=== PATIENT | male | born 1980 | race Caucasian/White ===

== ENCOUNTER 2016-08-25 17:54 | Emergency (ER) | payer OTHER ==
--- NOTE | 2016-08-25 19:42 | DIAGNOSTIC IMAGING REPORT ---
PROCEDURE: US SCROTUM/TESTICLE INDICATION: SCROTAL PAIN, initial encounter TECHNIQUE: House scale and color Doppler sonographic images through the scrotum were obtained. COMPARISON: None. FINDINGS: RIGHT TESTICLE: Measures 5.5 x 3.1 x 2.5 cm with normal echo structure and vascularity. 5 mm epididymal cyst. Small hydrocele. LEFT TESTICLE: Measures 5.2 x 2.3 x 3.1 cm with normal echo structure and vascularity. Normal epididymis. Small hydrocele. IMPRESSION: 1. Small bilateral hydroceles 2. Normal testicles
--- NOTE | 2016-08-25 20:18 | ED CLINICAL REPORT ---
Clinical Report - Physicians/Mid Levels [facility] [address] [place] [place] [address] 08/25/2016 17:53 Patient: MIKE REDDY Time Seen: 19:49 Aug 25 2016. Arrived- By private vehicle. Historian- patient. HISTORY OF PRESENT ILLNESS Chief Complaint: HEMATURIA. 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 The problem is described as mild. No penile discharge or discomfort with urination. (patient reports him any area off and on with clots, some hematuria with ejaculation, 2 days previously. Denies any fevers or chills. Denies any urgency or frequency. Denies dysuria. Reports history of similar, with nephrolithiasis.). REVIEW OF SYSTEMS No fever, chills, hematuria, abdominal pain or chest pain. No difficulty breathing. All systems otherwise negative, except as recorded above. SOCIAL HISTORY Never smoker. Alcohol use. History of drug use. ADDITIONAL NOTES The nursing notes have been reviewed. PHYSICAL EXAM Vital Signs: 08/25/2016 18:55 BP: 155/90. HR: 62. RR: 18. O2 saturation: 99%. Temp: 98.7 F. Appearance: Alert. ENT: Normal external inspection. Pharynx normal. Neck: Neck supple. CVS: Heart sounds normal. Respiratory: No respiratory distress. Breath sounds normal. Abdomen: Soft and nontender. Bowel sounds normal. No mass. Back: No CVA tenderness. : Normal genitalia. Testes descended. No tenderness present or scrotal mass. Skin: Skin warm. Normal skin color. LABS, X-RAYS, AND EKG Scrotal Sonogram: IMPRESSION: 1. Small bilateral hydroceles 2. Normal testicles Electronically Final signed by:Chris Saxena MD 08/25/2016 7:42:02 PM. Laboratory Tests: UA-Culture if indicated: (ALEJANDRINA: 08/25/2016 19:25) ( MsgRcvd 08/25/2016 20:00) Final results Test Result Flag Units (Reference) URINE COLOR YELLOW URINE APPEARANCE CLEAR URINE GLUCOSE NEGATIVE (NEGATIVE) URINE BILIRUBIN NEGATIVE (NEGATIVE) URINE KETONE NEGATIVE (NEGATIVE) URINE SPECIFIC GRAVITY 1.020 (1.010-1.030) URINE PH 7.0 (5.0-8.0) URINE PROTEIN NEGATIVE (NEGATIVE) URINE UROBILINOGEN 0.2 EU/dL (0.2-1.0) URINE NITRITE NEGATIVE (NEGATIVE) URINE BLOOD NEGATIVE (NEGATIVE) URINE LEUK ESTERASE NEGATIVE (NEGATIVE) URINE RBC 0-1 rbc/hpf (0-1) URINE WBC 0-1 wbc/hpf (0-1) URINE EPITHELIAL CELLS RARE EPI/hpf (0-5) URINE BACTERIA NONE SEEN (NONE SEEN) URINE COMMENT CULT NOT INDICATED 1+ AMORPHOUSURINE CULTURES ARE SET-UP BASED ON THE FOLLOWING CRITERIA:POSITIVE NITRITEPOSITIVE LEUKOCYTE ESTERASEGREATER THAN 10 WHITE BLOOD CELLSMODERATE (2+) OR GREATER BACTERIA . PROGRESS AND PROCEDURES Course of Care: Negative exam, with bilingual speech language pathologistRenato RN. Patient in the ER is very stable. No CVA tenderness. No signs of cystitis, nephrolithiasis, hematuria. he has no pain. neg us of testicle, and to f/u outpatient. Physical exam findings are improved. Symptoms better. Patient/family counseled. Disposition: Discharged. CLINICAL IMPRESSION Hematuria INSTRUCTIONS Drink plenty of fluids. (no signs of blood in urine your ultrasound looks great please follow up with urology for your "hematuria" occasional blood clots in urine). Warnings: Further evaluation is necessary. Follow-up: Follow up with a specialist Urology: toño [phone]. (Electronically signed by Zari Chu P.A.-C 08/25/2016 22:22)
--- NOTE | 2016-08-25 20:18 | ED CLINICAL REPORT ---
Clinical Report - Physicians/Mid Levels [facility] [address] [place] [address] 08/25/2016 17:53 Patient: MIKE REDDY Time Seen: 19:49 Aug 25 2016. Arrived- By private vehicle. Historian- patient. HISTORY OF PRESENT ILLNESS Chief Complaint: HEMATURIA. 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 The problem is described as mild. No penile discharge or discomfort with urination. (patient reports him any area off and on with clots, some hematuria with ejaculation, 2 days previously. Denies any fevers or chills. Denies any urgency or frequency. Denies dysuria. Reports history of similar, with nephrolithiasis.). REVIEW OF SYSTEMS No fever, chills, hematuria, abdominal pain or chest pain. No difficulty breathing. All systems otherwise negative, except as recorded above. SOCIAL HISTORY Never smoker. Alcohol use. History of drug use. ADDITIONAL NOTES The nursing notes have been reviewed. PHYSICAL EXAM Vital Signs: 08/25/2016 18:55 BP: 155/90. HR: 62. RR: 18. O2 saturation: 99%. Temp: 98.7 F. Appearance: Alert. ENT: Normal external inspection. Pharynx normal. Neck: Neck supple. CVS: Heart sounds normal. Respiratory: No respiratory distress. Breath sounds normal. Abdomen: Soft and nontender. Bowel sounds normal. No mass. Back: No CVA tenderness. : Normal genitalia. Testes descended. No tenderness present or scrotal mass. Skin: Skin warm. Normal skin color. LABS, X-RAYS, AND EKG Scrotal Sonogram: IMPRESSION: 1. Small bilateral hydroceles 2. Normal testicles Electronically Final signed by:Chris Saxena MD 08/25/2016 7:42:02 PM. Laboratory Tests: UA-Culture if indicated: (ALEJANDRINA: 08/25/2016 19:25) ( MsgRcvd 08/25/2016 20:00) Final results Test Result Flag Units (Reference) URINE COLOR YELLOW URINE APPEARANCE CLEAR URINE GLUCOSE NEGATIVE (NEGATIVE) URINE BILIRUBIN NEGATIVE (NEGATIVE) URINE KETONE NEGATIVE (NEGATIVE) URINE SPECIFIC GRAVITY 1.020 (1.010-1.030) URINE PH 7.0 (5.0-8.0) URINE PROTEIN NEGATIVE (NEGATIVE) URINE UROBILINOGEN 0.2 EU/dL (0.2-1.0) URINE NITRITE NEGATIVE (NEGATIVE) URINE BLOOD NEGATIVE (NEGATIVE) URINE LEUK ESTERASE NEGATIVE (NEGATIVE) URINE RBC 0-1 rbc/hpf (0-1) URINE WBC 0-1 wbc/hpf (0-1) URINE EPITHELIAL CELLS RARE EPI/hpf (0-5) URINE BACTERIA NONE SEEN (NONE SEEN) URINE COMMENT CULT NOT INDICATED 1+ AMORPHOUSURINE CULTURES ARE SET-UP BASED ON THE FOLLOWING CRITERIA:POSITIVE NITRITEPOSITIVE LEUKOCYTE ESTERASEGREATER THAN 10 WHITE BLOOD CELLSMODERATE (2+) OR GREATER BACTERIA . PROGRESS AND PROCEDURES Course of Care: Negative exam, with produce department managerRenato RN. Patient in the ER is very stable. No CVA tenderness. No signs of cystitis, nephrolithiasis, hematuria. he has no pain. neg us of testicle, and to f/u outpatient. Physical exam findings are improved. Symptoms better. Patient/family counseled. Disposition: Discharged. CLINICAL IMPRESSION Hematuria INSTRUCTIONS Drink plenty of fluids. (no signs of blood in urine your ultrasound looks great please follow up with urology for your "hematuria" occasional blood clots in urine). Warnings: Further evaluation is necessary. Follow-up: Follow up with a specialist Urology: toño [phone]. (Electronically signed by Zari Chu P.A.-C 08/25/2016 22:22)
--- NOTE | 2016-08-25 20:18 | ED ORDER SUMMARY ---
..... Patient: MIKE REDDY OrderSheet [facility] VisitID: [id number] [place] [address] 35y, M Registration Date/Time: 08/25/2016 ORDER SHEET Weight: 79.3 kg (stated) Allergies: None GENERAL ORDERS: US Scrotum/Testicular Urgent (19:05 08/25/2016 EKoroleva P.A.-C) (Ack 19:06 TBergley) (19:19 TLewis R.N.) GC/Chlamydia, Urine (Urine, Clean Catch) (u) Urgent (19:18 08/25/2016 EKoroleva P.A.-C) (Ack 19:20 TBergley) (19:28 TLewis R.N.) UA-Culture if indicated Urgent (19:18 08/25/2016 EKoroleva P.A.-C) (Ack 19:20 TBergley) (19:28 TLewis R.N.) MEDICATION ORDERS: IV FLUIDS: ORDER SHEET NOTES: [Electronically signed by Zari ChuAStiven-Kathryn (22:22 08/25/2016)] [Electronically signed by Tamika Meier R.N. (09:32 09/13/2016)] [Electronically locked/signed by Tamika Meier R.N. (09:32 09/13/2016)]
--- NOTE | 2016-08-25 20:18 | ED ORDER SUMMARY ---
..... Patient: MIKE REDDY OrderSheet [facility] VisitID: [id number] [place] [address] 35y, M Registration Date/Time: 08/25/2016 ORDER SHEET Weight: 79.3 kg (stated) Allergies: None GENERAL ORDERS: US Scrotum/Testicular Urgent (19:05 08/25/2016 EKoroleva P.A.-C) (Ack 19:06 TBergley) (19:19 TLewis R.N.) GC/Chlamydia, Urine (Urine, Clean Catch) (u) Urgent (19:18 08/25/2016 EKoroleva P.A.-C) (Ack 19:20 TBergley) (19:28 TLewis R.N.) UA-Culture if indicated Urgent (19:18 08/25/2016 EKoroleva P.A.-C) (Ack 19:20 TBergley) (19:28 TLewis R.N.) MEDICATION ORDERS: IV FLUIDS: ORDER SHEET NOTES: [Electronically signed by Zari ChuAStiven-Kathryn (22:22 08/25/2016)] [Electronically signed by Tamika Meier R.N. (09:32 09/13/2016)] [Electronically locked/signed by Tamika Meier R.N. (09:32 09/13/2016)]
--- NOTE | 2016-08-25 20:18 | ED NURSING NOTES ---
Clinical Report - Nurses [facility] [address] [place] [address] 08/25/2016 17:53 Patient: MIKE REDDY TRIAGE Triage time 18:55. Acuity: LEVEL 3. --19:02 Renato Gomez R.N. 18:55 08/25/16. BP: 155/90. HR: 62. RR: 18. O2 saturation: 99%. Temp: 98.7 F. Pain level now 12/21. --19:02 Renato Gomez R.N. Chief Complaint: PAINFUL URINATION. --09:32 Tamika Meier R.N. Weight: 79.3 kg stated. Height/Length: 73 inches Per Patient. BMI: 23.1. --19:00 Renato Gomez R.N. Medications SEROquel Oral. --19:01 Renato Gomez R.N. LaMICtal Oral 200mg , qd in am. --19: Renato Gomez R.N. Medication/allergy information source: the patient. --19:02 Renato Gomez R.N. Allergies None. --19:00 Renato Gomez R.N. History Arrived by private vehicle. Historian: patient. ( Pt came in due to having pain on urination that is burning. Pt had small amount of blood, when he ejaculated. Pt is having pain in the left testicle, and pt stated there is some swelling. Pt has been seen for kidney stones in the past, 3 times this year.). 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 SOCIAL HX: Heavy alcohol use; consumes three beers a day. History of occasional drug use: marijuana. --19:02 Renato Gomez R.N. ( urinary pain). --09:32 Tamika Meier R.N. PROBLEMS: Sprain. Bipolar Disorder. Pharyngitis. Immunizations. [place] teeth extracted. Neck I&D for MRSA after wisdom tooth extraction. Pn. Laceration. Animal Bite. ADHD - Attention Deficit Hyperactivity Disorder. Tetanus Status. --19:02 Renato Gomez R.N. Interventions ID band on patient. To treatment room. --19:02 Renato Gomez R.N. PHYSICAL ASSESSMENT GENERAL / NEURO / PSYCH: Alert. Oriented X 4. Appears anxious. (Pt is upset that his is not here). HEENT: Mucous membranes are pink. RESPIRATORY: Respirations not labored. Breath sounds within normal limits. CVS: Normal sinus rhythm noted. Capillary refill less than 2 seconds. GI / : Abdomen soft and nontender. Bowel sounds within normal limits. ( Pt denies any discharge in the penis. Pt stated he is passing blood clots in his urine and when he ejaculates. Pt has pain when he voids.). SKIN: Skin is warm and dry. --19:04 Renato Gomez R.N. NURSING PROGRESS NOTES Patient gowned. Two patient identifiers checked. Call light placed in reach. Side rails up x 1. Bed placed in lowest position. --19:04 Renato Gomez R.N. ( Ultrasound is present in the room.). --19:18 Renato Gomez R.N. DISPOSITION / DISCHARGE Departure time: 2032. No learning barriers present. Discharge instructions provided and reviewed with the patient. The patient was discharged by the physician preschool assistant teacher. He was discharged home. ( Pt ambulated on discharge steady on his feet pt verbalized understanding of discharge instructions and follow up care.). --20:39 Wilbur Mast R.N. 20:35 08/25/16. BP: 151/96. HR: 83. RR: 18. O2 saturation: 100%. Temp: 97.8 F. Pain level now 0/10. --20:39 Wilbur Mast R.N. Locked/Released at 09/13/2016 9:32 by Tamika Meier R.N.
--- NOTE | 2016-08-25 20:18 | ED NURSING NOTES ---
Clinical Report - Nurses Merged [facility] [address] [place] [address] 08/25/2016 17:53 Patient: MIKE REDDY TRIAGE Triage time 18:55. Acuity: LEVEL 3. --19:02 Renato Gomez R.N. 18:55 08/25/16. BP: 155/90. HR: 62. RR: 18. O2 saturation: 99%. Temp: 98.7 F. Pain level now 12/21. --19:02 Renato Gomez R.N. Chief Complaint: PAINFUL URINATION. --09:32 Tamika Meier R.N. Weight: 79.3 kg stated. Height/Length: 73 inches Per Patient. BMI: 23.1. --19:00 Renato Gomez R.N. Medications SEROquel Oral. --19:01 Renato Gomez R.N. LaMICtal Oral 200mg , qd in am. --19: Renato Gomez R.N. Medication/allergy information source: the patient. --19:02 Renato Gomez R.N. Allergies None. --19:00 Renato Gomez R.N. History Arrived by private vehicle. Historian: patient. ( Pt came in due to having pain on urination that is burning. Pt had small amount of blood, when he ejaculated. Pt is having pain in the left testicle, and pt stated there is some swelling. Pt has been seen for kidney stones in the past, 3 times this year.). 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 SOCIAL HX: Heavy alcohol use; consumes three beers a day. History of occasional drug use: marijuana. --19:02 Renato Gomez R.N. ( urinary pain). --09:32 Tamika Meier R.N. PROBLEMS: Sprain. Bipolar Disorder. Pharyngitis. Immunizations. [place] teeth extracted. Neck I&D for MRSA after wisdom tooth extraction. Pn. Laceration. Animal Bite. ADHD - Attention Deficit Hyperactivity Disorder. Tetanus Status. --19:02 Renato Gomez R.N. Interventions ID band on patient. To treatment room. --19:02 Renato Gomez R.N. PHYSICAL ASSESSMENT GENERAL / NEURO / PSYCH: Alert. Oriented X 4. Appears anxious. (Pt is upset that his is not here). HEENT: Mucous membranes are pink. RESPIRATORY: Respirations not labored. Breath sounds within normal limits. CVS: Normal sinus rhythm noted. Capillary refill less than 2 seconds. GI / : Abdomen soft and nontender. Bowel sounds within normal limits. ( Pt denies any discharge in the penis. Pt stated he is passing blood clots in his urine and when he ejaculates. Pt has pain when he voids.). SKIN: Skin is warm and dry. --19:04 Renato Gomez R.N. NURSING PROGRESS NOTES Patient gowned. Two patient identifiers checked. Call light placed in reach. Side rails up x 1. Bed placed in lowest position. --19:04 Renato Gomez R.N. ( Ultrasound is present in the room.). --19:18 Renato Gomez R.N. DISPOSITION / DISCHARGE Departure time: 2032. No learning barriers present. Discharge instructions provided and reviewed with the patient. The patient was discharged by the physician phlebotomist medical lab assistant. He was discharged home. ( Pt ambulated on discharge steady on his feet pt verbalized understanding of discharge instructions and follow up care.). --20:39 Wilbur Mast R.N. 20:35 08/25/16. BP: 151/96. HR: 83. RR: 18. O2 saturation: 100%. Temp: 97.8 F. Pain level now 0/10. --20:39 Wilbur Mast R.N. Locked/Released at 09/13/2016 9:32 by Tamika Meier R.N.
--- NOTE | 2016-09-13 09:33 | ED MED RECONCILIATION SUMMARY ---
Patient: MIKE REDDY Medication Reconciliation Report [facility] VisitID: [id number] [address] [place] [address] 35y, M Registration Date/Time: 08/25/2016 Weight: 79.3 kg Height/Length: 73 in. BMI: 23.1 ALLERGIES: None The patient's Home Medications are listed below: THE FOLLOWING MEDICATIONS NEED TO BE RECONCILED: LaMICtal Oral 200mg , qd in am SEROquel Oral The source(s) of the original Home Medication information: patient The following Medications were given to the patient in the Emergency Department: None. The following Medications were prescribed to the patient: None.
--- NOTE | 2016-09-13 09:33 | ED MAR SUMMARY ---
..... Medication Administration Record [facility] [address] [place], [place] [id number] Patient: MIKE REDDY Visit ID: [id number] 35y, M Weight: 79.3 kg Height/Length: 73 in BMI: 23.1 ALLERGIES: None
--- NOTE | 2016-09-13 09:33 | ED DISCHARGE INSTRUCTIONS ---
Patient: MIKE REDDY General Instructions [facility] VisitID: [id number] [place] [address] 35y, M Registration Date/Time: 08/25/2016 Hematuria INSTRUCTIONS Drink plenty of fluids. (no signs of blood in urine your ultrasound looks great please follow up with urology for your "hematuria" occasional blood clots in urine). Warnings: Further evaluation is necessary. Follow-up: Follow up with a specialist Urology: toño [phone]. ADDITIONAL INFORMATION Blood In The Urine Blood in the urine ("hematuria") has many possible causes. If it occurs after an injury (such as a car accident or fall), it is most often a sign of bruising to the kidney or bladder. Common medical causes of blood in the urine include urinary tract infection, kidney stone, inflammation, tumors, or certain other diseases of the kidney or bladder. Menstruation can cause blood to appear in the urine sample, although it is not coming from the urinary tract. If only a trace amount of blood is present, it will show up on the urine test, even though the urine may be yellow and not pink or red. This may occur with any of the above conditions, as well as heavy exercise or high fever. In this case, your doctor may want to repeat the urine test on another day. This will show if the blood is still present. If so, then other tests can be done to find out the cause. Home Care: If your urine does not appear bloody (pink, brown or red) then you do not need to restrict your activity in any way. If you can see blood in your urine, rest and avoid heavy exertion until your next exam. Do not use aspirin or anti-inflammatory medicine like ibuprofen (Motrin, Advil) or naproxen (Naprosyn, Aleve). These thin the blood and may increase bleeding. Follow Up with your doctor or as advised by our staff. If you were injured and had blood in your urine, you should have a repeat urine test in 1-2 days. Contact your doctor or return to this facility for this test. [NOTE: A radiologist will review any X-rays that were taken. We will notify you of any new findings that may affect your care.] Get Prompt Medical Attention if any of the following occur: Bright red blood or blood clots in the urine (if a new symptom) Weakness, dizziness or fainting New groin, abdominal or back pain Fever of 100.4F (38C) or higher, or as directed by your healthcare provider Repeated vomiting Bleeding from nose, gums or easy bruising You have been given the following additional information: Hematuria (Electronically signed by Zari Chu P.A.-C 08/25/2016 22:22)
--- NOTE | 2016-09-13 09:33 | ED MED RECONCILIATION SUMMARY ---
Patient: MIKE REDDY Medication Reconciliation Report [facility] VisitID: [id number] [address] [place] [address] 35y, M Registration Date/Time: 08/25/2016 Weight: 79.3 kg Height/Length: 73 in. BMI: 23.1 ALLERGIES: None The patient's Home Medications are listed below: THE FOLLOWING MEDICATIONS NEED TO BE RECONCILED: LaMICtal Oral 200mg , qd in am SEROquel Oral The source(s) of the original Home Medication information: patient The following Medications were given to the patient in the Emergency Department: None. The following Medications were prescribed to the patient: None.
--- NOTE | 2016-09-13 09:33 | ED MAR SUMMARY ---
..... Medication Administration Record [facility] [address] [place], [place] [id number] Patient: MIKE REDDY Visit ID: [id number] 35y, M Weight: 79.3 kg Height/Length: 73 in BMI: 23.1 ALLERGIES: None
--- NOTE | 2016-09-13 09:33 | ED DISCHARGE INSTRUCTIONS ---
Patient: MIKE REDDY General Instructions [facility] VisitID: [id number] [place] [address] 35y, M Registration Date/Time: 08/25/2016 Hematuria INSTRUCTIONS Drink plenty of fluids. (no signs of blood in urine your ultrasound looks great please follow up with urology for your "hematuria" occasional blood clots in urine). Warnings: Further evaluation is necessary. Follow-up: Follow up with a specialist Urology: toño [phone]. ADDITIONAL INFORMATION Blood In The Urine Blood in the urine ("hematuria") has many possible causes. If it occurs after an injury (such as a car accident or fall), it is most often a sign of bruising to the kidney or bladder. Common medical causes of blood in the urine include urinary tract infection, kidney stone, inflammation, tumors, or certain other diseases of the kidney or bladder. Menstruation can cause blood to appear in the urine sample, although it is not coming from the urinary tract. If only a trace amount of blood is present, it will show up on the urine test, even though the urine may be yellow and not pink or red. This may occur with any of the above conditions, as well as heavy exercise or high fever. In this case, your doctor may want to repeat the urine test on another day. This will show if the blood is still present. If so, then other tests can be done to find out the cause. Home Care: If your urine does not appear bloody (pink, brown or red) then you do not need to restrict your activity in any way. If you can see blood in your urine, rest and avoid heavy exertion until your next exam. Do not use aspirin or anti-inflammatory medicine like ibuprofen (Motrin, Advil) or naproxen (Naprosyn, Aleve). These thin the blood and may increase bleeding. Follow Up with your doctor or as advised by our staff. If you were injured and had blood in your urine, you should have a repeat urine test in 1-2 days. Contact your doctor or return to this facility for this test. [NOTE: A radiologist will review any X-rays that were taken. We will notify you of any new findings that may affect your care.] Get Prompt Medical Attention if any of the following occur: Bright red blood or blood clots in the urine (if a new symptom) Weakness, dizziness or fainting New groin, abdominal or back pain Fever of 100.4F (38C) or higher, or as directed by your healthcare provider Repeated vomiting Bleeding from nose, gums or easy bruising You have been given the following additional information: Hematuria (Electronically signed by Zari Chu P.A.-C 08/25/2016 22:22)
== END 2016-08-25 20:33 | disposition home or self-care (01) ==
LOC: ED SRH 17:54
DX: R31.0 Gross hematuria (principal)
CPT/HCPCS: 90004; 91227; 91228